=== PATIENT | male | born 1955 | race Caucasian/White ===

== ENCOUNTER → 2021-05-16 14:47 | Outpatient (CLI) | payer MEDICARE, OTHER, SELFPAY ==
--- NOTE | ~2021-05-16 | CT_ITS ---
EXAMINATION: CTA chest DATE: 05/16/2021 15:29 INDICATION: Ascending aortic aneurysm. TECHNIQUE: Computed tomographic angiography (CTA) of the chest was performed with 100 mL Omnipaque-35 0 intravenous contrast. Automated exposure control and iterative reconstruction technique were employ ed. The dose-length product was 811.91 mGy-cm. Maximum intensity projection 3D-reconstructions of the aorta and other arteries were constructed by the technologist on a separate workstation. COMPARISON: None. FINDINGS: There is a 4 mm nodule in right lung lower lobe, likely benign. A calcified left lung nodul e and calcified left hilar and mediastinal lymph nodes are consistent with old granulomatous disease. No pleural effusion. The heart size is normal. There are coronary artery calcifications. No pericard ial effusion. There are cysts in left kidney measuring up to 5.9 cm. There is fat stranding at the ro ot of the small bowel mesentery, likely mesenteric panniculitis. The aorta measures 3.9 cm at the sin uses of Valsalva, 3.3 cm at the sinotubular junction, 3.9 cm in the mid ascending aorta, 2.5 cm at th e aortic isthmus, and 2.7 cm in mid descending aorta. There is mild aortic atherosclerosis. There are bridging endplate osteophytes at multiple levels in the spine, consistent with diffuse idiopathic sk eletal hyperostosis (DISH). There is severe cervical spondylosis and mild thoracic spondylosis. IMPRESSION: 1. Mild aortic atherosclerosis. No aneurysm. Reviewed, dictated and finalized at location A.
[2021-05-16 15:03] LABS: Estimated Glomerular Filt Rate > 60
== END ==
PROVIDERS: PCP Nurse Practitioner; Visit Provider Nurse Practitioner
DX: I70.0 Atherosclerosis of aorta (principal)
CPT/HCPCS: 71275; Q9967

== ENCOUNTER → 2021-06-06 10:37 | Outpatient (CLI) | payer MEDICARE, OTHER, SELFPAY ==
--- NOTE | ~2021-06-06 | CT_ITS ---
EXAMINATION: CT abdomen pelvis w con EXAM DATE: 06/06/2021 11:08 INDICATION: Lower abdominal pain. Right inguinal hernia repair. TECHNIQUE: Spiral CT of the abdomen and pelvis was performed following intravenous injection of 100 m L Omnipaque 350. Axial, coronal and sagittal images of the abdomen and pelvis were reviewed. The do se-length product (DLP) for this examination was 959.91 mGy-cm. The exposure was tailored according to patient size (auto mA exposure control), and iterative reconstruction (ASIR) was used as additiona l dose reduction technique. There is no prior study for comparison. FINDINGS: There is jose francisco mesentery appearance, a nonspecific finding but most commonly caused by infi ltration with inflammatory cells, chronic mesenteric panniculitis. No pathologically enlarged lymph n odes to suggest lymphoma/malignancy, or thrombosed vessels to suggest edema. There is 9 mm left liver dome cyst. The liver, spleen, adrenal glands and pancreas are otherwise unr emarkable. Gallbladder is unremarkable. No biliary obstruction. Portal and splenic veins are paten t. Kidneys enhance symmetrically. There is no hydronephrosis. Left renal cysts, measuring up to 6 c m. The prostate is unremarkable. The bladder is unremarkable. There is no retroperitoneal or pelvi c lymphadenopathy. There is mild scattered arteriosclerotic disease. Small left inguinal fat-contai david hernia. The appendix is normal. There is mild to moderate descending and sigmoid colonic diverticulosis. The re is no adjacent inflammatory change to suggest diverticulitis. The stomach and small bowel are unre markable. There is expected amount of colonic stool. No free intraperitoneal gas. The heart is n ormal in size. There are no pericardial or pleural effusions. The lung bases are unremarkable. The re are no osteoblastic or osteolytic lesions identified. IMPRESSION: 1. No acute intra-abdominal findings. 2. Jose Francisco mesentery most likely chronic panniculitis. 3. Mild to moderate colonic diverticulosis. Reviewed, dictated and finalized at location A.
[2021-06-06 10:56] LABS: Estimated Glomerular Filt Rate > 60
== END ==
PROVIDERS: PCP Nurse Practitioner; Visit Provider Nurse Practitioner
DX: R10.30 Lower abdominal pain, unspecified (principal); Z98.890 Other specified postprocedural states; Z87.19 Personal history of other diseases of the digestive system; K57.30 Diverticulosis of large intestine without perforation or abscess without bleeding
CPT/HCPCS: 74177; Q9967